=== PATIENT | male | born 1945 | race Caucasian/White ===

== ENCOUNTER → 2021-11-09 | Outpatient (CLI) | payer MEDICARE, OTHER ==
[~2021-11-09] MED LIST: IOHEXOL 300 MG/ML 100ML VIAL. IV ONE
--- NOTE | 2021-11-09 15:21 | RAD ---
EXAMINATION: CT NECK SOFT TISSUE WITHOUT AND WITH IV CONTRAST, 11/09/2021 10:19 AM CLINICAL INDICATION: Mass of mouth COMPARISON: None TECHNIQUE: Helical CT imaging performed of the soft tissues neck before and after administration of 7 0 mL Omnipaque 300 contrast. Sagittal and coronal reformats were obtained. One or more of the following individualized dose reduction techniques were utilized for this examinat ion: 1. Automated exposure control 2. Adjustment of the mA and/or kV according to patient size 3. Use of iterative reconstruction technique. FINDINGS: There is an enhancing destructive soft tissue mass in the left hemimandible measuring appro ximately 3.2 x 1.9 x 1.8 cm (image 57, series 6 and image 10, series 8). This causes destruction of t he underlying mandible. The patient is edentulous. Nasopharynx is normal. Hypopharynx and larynx are normal. There are mildly enlarged left cervical chain lymph nodes. For example a level 1B lymph node measurin g 1.1 x 0.7 cm. A adjacent round level 1B lymph node measuring 8 x 7 mm. There were a few small lymph nodes in the lower left neck measuring up to 6 cm short axis. No enlarged lymph nodes in the right n ayleen. Submandibular, parotid, and thyroid gland are normal. There is moderate emphysema in the lung apices. There are calcifications in the right greater than le ft carotid bulbs. Visualized internal contents are unremarkable. Globes and orbits are intact. Lenses have been extract ed. Mild scattered mucosal thickening in the paranasal sinuses. Sclerotic appearance of the mastoid a ir cells. No acute osseous abnormalities. Prevertebral soft tissues normal. IMPRESSION: 3.2 cm enhancing destructive soft tissue mass in the left hemimandible with adjacent mild ly enlarged lymph nodes, suspicious for malignancy. Electronically signed by: Zora Samaniego MD (11/09/2021 3:19 PM) [id number]
== END ==
LOC: CT 10:12
PROVIDERS: ATTEND Family Medicine
DX: K13.79 Other lesions of oral mucosa (principal); R59.0 Localized enlarged lymph nodes; J43.9 Emphysema, unspecified; J98.4 Other disorders of lung; J34.89 Other specified disorders of nose and nasal sinuses
CPT/HCPCS: 70492; Q9967